=== PATIENT | female | born 2000 | race American Indian/Alaskan Native ===

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

== ENCOUNTER 2024-10-17 18:21 | Emergency (ER) | payer OTHER ==
[~2024-10-17] VITALS: Ht 165.1 cm; Wt 64.1 kg
[~2024-10-17 18:21] MED LIST changes: +IBUPROFEN400 MG PO; +IBUPROFEN600 MG PO
[2024-10-17 21:05] LABS: BASOPHILS 0.1 % (0-2); EOSINOPHILS 0.7 % (0-6); HEMATOCRIT 38.9 % (35.0-50.0); HEMOGLOBIN 13.7 g/dL (12.0-18.0); LYMPHOCYTES 6.5 % (24-44); MCH 29.8 (27-36); MCHC 35.1 g/dl (30-36); MCV 84.8 fl (81-99); MONOCYTES 4.9 % (0-12); NEUTROPHILS 87.8 % (39-80); PLATELET COUNT 275 K/uL (140-440); RBC 4.59 M/ul (4.3-5.7); RDW 13.2 (10.5-15.0)
[2024-10-17 21:15] LABS: ALBUMIN 4.4 g/dL (3.4-5.0); ALBUMIN/GLOBULIN RATIO 1.29 (1.1-2.4); ANION GAP 11.4 (7-21); BILIRUBIN, TOTAL 0.8 mg/dL (0.2-1.0); BUN/CREATININE RATIO 11.94 (6.0-28.6); CALCIUM 8.8 mg/dL (8.5-10.1); CREATININE, SERUM 0.67 mg/dL (0.55-1.02); POTASSIUM 3.4 mmol/L (3.5-5.1); PROTEIN, TOTAL 7.8 g/dL (6.4-8.2)
[2024-10-17] MEDS ORDERED: KETOROLAC TROMETHAMINE 30 MG/ML VIAL IV ONE (21:30)
[2024-10-17] MEDS ORDERED: ondansetron HCL 4 MG/2 ML VIAL IV ONE (21:30)
[2024-10-17 21:33] LABS: BILIRUBIN, URINE NEGATIVE (negative); BLOOD/HGB, URINE TRACE-I (Negative); KETONE, URINE >=80 (Negative); LEUK ESTERASE, URINE NEGATIVE (negative); NITRITE, URINE NEGATIVE (negative)
[2024-10-17 21:38] LABS: CRYSTALS, URINE NONE SEEN (0-1+); EPITHELIAL CELLS, URINE SQUAMOUS 4+ /lpf (0-1+)
[2024-10-17 21:39] LABS: BACTERIA, URINE 3+ /hpf (negative); CASTS, URINE NONE SEEN \\lpf; COLLECTION TYPE, URINE CLEAN CATCH; REFLEX CULTURE, URINE No (No)
[2024-10-17] MEDS ORDERED: FAMOTIDINE 20 MG/ 2 ML VIAL IV ONE (21:45)
[2024-10-17] MEDS ORDERED: LACTATED RINGER'S 1,000 ML IV ONE (21:45)
[2024-10-17] MEDS ORDERED: ONDANSETRON 4 MG HOME.PACK SL ONE (23:30)
[2024-10-17 23:41] VITALS: BP 114/54
== END 2024-10-17 23:43 | disposition home or self-care (01) ==
LOC: ED 18:21
PROVIDERS: Internal Medicine
DX: R10.11 Right upper quadrant pain (principal); R10.31 Right lower quadrant pain; R11.10 Vomiting, unspecified
CPT/HCPCS: 36415; 76705; 80053; 81001; 83690; 84703; 85025; 96361; 96374; 96375; 99284-25; A9270; J1885; J2405; J7121